=== PATIENT | female | born 1950 | race Caucasian/White ===

== ENCOUNTER 2022-02-19 04:50 | Emergency (ER) | payer MEDICARE, SELFPAY ==
[2022-02-19 04:47] VITALS: BP 102/54; PULSE 54; RESP 18; O2SAT 98
[2022-02-19 05:03] LABS: Glucose Point of Care 300 mg/dl (65-105)
--- NOTE | 2022-02-19 05:11 | ECG_ITS ---
Measurements Intervals [place] Rate: 58 P: 33 ME: 144 QRS: 34 QRSD: 86 T: 48 QT: 406 QTc: 400 Interpretive Statements SINUS BRADYCARDIA LOW QRS VOLTAGE IN DIFFUSE LEADS BORDERLINE ECG Electronically Signed On 02-19-2022 9:44:20 CDT by Cassius Vivas D.O.
--- NOTE | 2022-02-19 05:11 | PC.NURSE ---
Pt sleeping on stretcher, arousable to verbal stimuli. Pt reports taking two 1mg Xanax before bed last PM.
--- NOTE | 2022-02-19 05:34 | PC.NURSE ---
Pt yelling Help! I fell out of bed! This RN went to pt's room, and pt noted to be lying on stretcher. Informed pt she was still in bed, to which she responded, I lied to get you to give me some water. This RN explained to pt why this is inappropriate behavior.
--- NOTE | 2022-02-19 05:48 | PC.NURSE ---
Bed alarm placed under pt for safety
--- NOTE | 2022-02-19 05:56 | ED.GENADULT ---
HPI - General Adult General Chief complaint: Recheck/Abnormal Lab/Rx Stated complaint: high blood sugar Time Seen by Provider: 02/19/22 05:02 History of Present Illness HPI narrative: Patient is a 71-year-old female who presents to the emergency department with chief complaint of hyperglycemia and sleepiness. Patient states she thinks she took 2 doses of her Xanax today and also noticed that since her surgery on her back she has noticed her blood sugars have been running high. Patient states that she feels though she is slightly dehydrated reports no injury denies vomiting or diarrhea reports that her blood sugars were in the 300s patient denies nausea vomiting Related Data Allergies Allergy/AdvReac Type Severity Reaction Status Date / Time amoxicillin Allergy Mild HOT Verified 02/19/22 04:55 FLASHES,REDDENED SKIN clavulanic acid Allergy Mild HOT Verified 02/19/22 04:55 FLASHES,REDDENED SKIN Penicillins Allergy Mild RASH Verified 02/19/22 04:55 Review of Systems Review of Systems: A 10 system review of systems was completed on the patient and is negative except for what is stated in the HPI. Nursing and ancillary documentation was reviewed. Exam Narrative: GENERAL: Well-appearing, well-nourished, and in no acute distress. HEAD: Normocephalic, atraumatic. EYES: PERRLA and EOMI. ENT: Nares clear, no rhinorrhea or epistaxis. Mucous membranes moist. NECK: Supple. CHEST: Clear to auscultation. No respiratory distress. HEART: Regular rate and rhythm. No murmur heard. Normal peripheral pulses. ABDOMEN: Soft, nontender, nondistended, normal active bowel sounds. EXTREMITIES: Normal range of motion. No edema. SKIN: Warm, dry, no rash. NEURO: No focal deficits. Alert and oriented x3. PSYCH: Normal mood and affect. Course Course Emergency Course: EKG is sinus bradycardia rate of [address] elevation or ST depression Vital Signs Vital signs: Vital Signs Pulse Rate 54 L 02/19/22 04:47 Respiratory Rate 18 02/19/22 04:47 Blood Pressure 102/54 L 02/19/22 04:47 Pulse Oximetry 98 02/19/22 04:47 Oxygen Delivery Room Air 02/19/22 04:47 Pulse Rate 59 L 02/19/22 06:36 Respiratory Rate 16 02/19/22 06:36 Blood Pressure 107/62 02/19/22 06:50 Pulse Oximetry 97 02/19/22 06:36 Oxygen Delivery Room Air 02/19/22 04:47 Medical Decision Making Vital Signs Vital Signs: Vital Signs Pulse Rate 54 L 02/19/22 04:47 Respiratory Rate 18 02/19/22 04:47 Blood Pressure 102/54 L 02/19/22 04:47 Pulse Oximetry 98 02/19/22 04:47 Oxygen Delivery Room Air 02/19/22 04:47 Pulse Rate 59 L 02/19/22 06:36 Respiratory Rate 16 02/19/22 06:36 Blood Pressure 107/62 02/19/22 06:50 Pulse Oximetry 97 02/19/22 06:36 Oxygen Delivery Room Air 02/19/22 04:47 Lab Data Result diagrams: 02/19/22 06:03 02/19/22 06:03 Labs: Lab Results 02/19/22 02/19/22 02/19/22 Range/Units 04:59 06:03 06:03 WBC 8.4 (4.5-10.0) K/mm3 RBC 3.51 L (4.2-5.4) M/mm3 Hgb 11.2 L (12.0-15.0) g/dL Hct 33.0 L (37.0-47.0) % MCV 94.0 (80-100) fl MCH 31.9 (26-34) pg MCHC 33.9 (32-36) g/dl RDW 12.1 (11.5-14.5) % Plt Count 268 (150-375) k/mm3 MPV 9.8 (7.4-10.4) fl Immature Gran % (Auto) 0.6 H (0-0.5) % Neut % (Auto) 66.7 (45.5-73.1) % Lymph % (Auto) 18.0 L (18.3-44.2) % [place] % (Auto) 9.7 H (2.6-8.5) % Eos % (Auto) 4.8 H (0-4.4) % Baso % (Auto) 0.2 (0.2-1.2) % Lymph # (Auto) 1.51 (0.9-3.2) K/mm3 [place] # (Auto) 0.8 H (0.1-0.6) K/mm3 Eos # (Auto) 0.4 H (0-0.3) K/mm3 Baso # (Auto) 0.0 (0.0-0.1) K/mm3 Abs Immat Gran (auto) 0.05 H (0.00-0.031) K/mm3 Absolute Neuts (auto) 5.6 (1.3-6.7) K/mm3 Absolute Nucleated RBC 0.0 (0.0-0.012) K/mm3 Nucleated RBC % 0.0 (0.0-0.2) % Sodium (137-145) mmol/L Potassium (3.4-5.0) mmol/L Chloride (98-107) m
[2022-02-19] MEDS: SODIUM CHLORIDE 0.9% IV 1,000 ML 999 ML IV CONT (06:15)
[2022-02-19 06:21] LABS: Appearance Urine Clear (Clear); Bilirubin Urine Negative (Negative); Color Urine Yellow (Yellow); Glucose Urine UA 2+ mg/dL (Negative); Ketones Urine Negative (Negative); Leukocyte Esterase Ur Negative LEU/UL (Negative); Nitrate Urine Negative (Negative); Protein Urine Negative (Negative); Urobilinogen Urine 0.2 mg/dL (<2.0)
[2022-02-19 06:24] LABS: RBC Urine 0-2 /hpf (0-2); Squamous Epithelial Cell Urine Rare /hpf (Few); WBC Urine 0-3 /hpf
[2022-02-19 06:25] LABS: Basophils Percent Auto 0.2 % (0.2-1.2); Eosinophils Absolute Auto 0.4 K/mm3 (0-0.3); Eosinophils Percent Auto 4.8 % (0-4.4); Hemoglobin 11.2 g/dL (12.0-15.0); Immature Granulocyte Absolute 0.05 K/mm3 (0.00-0.031); Immature Granulocyte Percent A 0.6 % (0-0.5); Lymphocytes Absolute Auto 1.51 K/mm3 (0.9-3.2); Mean Corpuscular HGB Conc 33.9 g/dl (32-36); Mean Corpuscular Hemoglobin 31.9 pg (26-34); Mean Platelet Volume 9.8 fl (7.4-10.4); Monocytes Absolute Auto 0.8 K/mm3 (0.1-0.6); Monocytes Percent Auto 9.7 % (2.6-8.5); Neutrophils Absolute Auto 5.6 K/mm3 (1.3-6.7); Neutrophils Percent Auto 66.7 % (45.5-73.1); Platelet Count Result 268 k/mm3 (150-375); Red Blood Count 3.51 M/mm3 (4.2-5.4); Red Cell Distribution Width 12.1 % (11.5-14.5); White Blood Count 8.4 K/mm3 (4.5-10.0)
[2022-02-19 06:33] LABS: Lactic Acid Reflex 1.3 mmol/L (0.7-2.0)
[2022-02-19 06:34] LABS: Alanine Aminotransferase 13 U/L (6-35); Albumin Level 3.3 g/dL (3.5-5.1); Alkaline Phosphatase 48 U/L (38-126); Anion Gap 6 mmol/L (8-16); Aspartate Amino Transferase 16 U/L (14-36); Bilirubin,Total 0.6 mg/dL (0.2-1.3); Blood Urea Nitrogen 15 mg/dL (7-17); Calcium 8.8 mg/dL (8.4-10.2); Carbon Dioxide 24 mmol/L (22-30); Chloride 104 mmol/L (98-107); Estimated CRCL calculation 50 ml/min; Estimated Glomerular Filt Rate 55; Glucose 293 mg/dL (65-110); Lipase 59 U/L (23-300); Potassium 4.3 mmol/L (3.4-5.0); Sodium 134 mmol/L (137-145)
[2022-02-19 06:35] LABS: Add Urine Microscopic? YES; Blood Urine Trace-Intact (Negative)
[2022-02-19 06:36] VITALS: BP 88/48; PULSE 59; RESP 16; O2SAT 97
[2022-02-19 06:37] LABS: Beta-Hydroxybutyrate/Acetoacetate 0.06 mmol/L (0.02-0.27)
[2022-02-19 06:50] VITALS: BP 107/62
== END 2022-02-19 08:04 | disposition home or self-care (01) ==
PROVIDERS: Emergency Provider Emergency Medicine
DX: E11.65 Type 2 diabetes mellitus with hyperglycemia (principal); R00.1 Bradycardia, unspecified
CPT/HCPCS: 36415; 51701; 80053; 81001; 82010; 82948; 83605; 83690; 85025; 93005; 96360; 99283; J7030